=== PATIENT | male | born 1965 | race African-American/Black ===

== ENCOUNTER 2017-08-08 19:23 | Emergency (ER) | payer MEDICAID ==
[~2017-08-08] VITALS: Ht 177.8 cm; Wt 57.0 kg
[~2017-08-08 19:23] MED LIST: DARU400T2 PO; DILANTIN PO; EMTR1TAB11 PO; MULT-1146 PO; RITO100T PO
[2017-08-08 19:24] VITALS: BP 116/72
== END 2017-08-08 22:22 | disposition left against medical advice (07) ==
LOC: ER 19:29
DX: Z53.21 Procedure and treatment not carried out due to patient leaving prior to being seen by health care provider (principal)

== ENCOUNTER 2018-08-04 20:37 | Emergency (ER) | payer MEDICAID ==
[~2018-08-04] VITALS: Ht 175.3 cm; Wt 75.0 kg
[2018-08-04] MEDS ORDERED: SODIUM CHLORIDE 0.9% 1,000 ML IV ONE (20:55)
[2018-08-04] MEDS ORDERED: LORAZEPAM 2MG/ML CPJ IV ONE ×3 (21:00→21:30)
[2018-08-04] MEDS ORDERED: LEVETIRACETAM 1000MG/100ML 100 ML IV ONE (21:00)
[2018-08-04] MEDS ORDERED: LORAZEPAM 2MG/ML CPJ ONE (21:19)
[2018-08-04 21:22] LABS: HEMATOCRIT. 38.8 % (42.0-52.0); HEMOGLOBIN. 12.9 g/dL (14.0-18.0); MEAN CORPUSCULAR HEMOGLOBIN 28.5 pg (28.0-32.0); MEAN CORPUSCULAR VOLUME 85.9 fL (80.0-94.0); MEAN PLATELET VOLUME 7.2 fl (7.4-10.4); PLATELET 125 x1000/uL (130-400); RED BLOOD CELL COUNT 4.51 mill/uL (4.7-6.1); RED CELL DISTRIBUTION WIDTH 13.8 % (11.6-14.6)
[2018-08-04 21:28] LABS: CHLORIDE 105 mEq/L (98-107)
[2018-08-04 21:33] LABS: ETHANOL BLOOD < 10 mg/dL
[2018-08-04 21:47] LABS: METHADONE URINE SCREEN NEGATIVE (NEGATIVE); OPIATES URINE SCREEN NEGATIVE (NEGATIVE); PHENCYCLIDINE URINE SCREEN NEGATIVE (NEGATIVE)
[2018-08-04 21:47] LABS: CARBAMAZEPINE < 0.5 ug/mL (4-12); PHENOBARBITAL < 2.1 ug/mL (15.0-40.0); VALPROIC ACID < 3.0 ug/mL (50-100)
[2018-08-04 21:49] LABS: *AMPHETAMINES SCREEN URINE NEGATIVE (NEGATIVE); *BARBITURATES SCREEN URINE NEGATIVE (NEGATIVE); *BENZODIAZEPINES SCREEN URINE NEGATIVE (NEGATIVE); *COCAINE SCREEN URINE NEGATIVE (NEGATIVE); CANNABINOID URINE SCREEN NEGATIVE (NEGATIVE)
[2018-08-04 23:01] LABS: ATYPICAL LYMPHOCYTES 3; NUCLEATED RED BLOOD CELLS 1 /100 WBC; PLATELET ESTIMATE SLIGHTLY DECREASED
[2018-08-05 00:39] VITALS: BP 119/88
== END 2018-08-05 00:42 | disposition home or self-care (01) ==
LOC: ER 21:01
DX: G40.909 Epilepsy, unspecified, not intractable, without status epilepticus (principal); E86.0 Dehydration; F17.200 Nicotine dependence, unspecified, uncomplicated; Z79.899 Other long term (current) drug therapy
CPT/HCPCS: 36415; 70450; 80053; 80156; 80165; 80184; 80185; 80305; 80320; 84443; 84484; 85025; 93005; 96365; 96375; 96376; 99284; J1953; J2060; J7030; Z7610; G0480

== ENCOUNTER 2019-05-16 01:25 | Emergency (ER) | payer MEDICAID ==
[~2019-05-16] VITALS: Ht 177.8 cm; Wt 73.0 kg
[2019-05-16] MEDS ORDERED: LEVETIRACETAM 1000MG/100ML 100 ML IV ONE (01:45)
[2019-05-16 02:41] LABS: BASOPHILS % 0.6 % (0.0-2.0); EOSINOPHILS % 0.3 % (0.0-5.0); HEMATOCRIT. 40.4 % (42.0-52.0); HEMOGLOBIN. 13.4 g/dL (14.0-18.0); LYMPHOCYTES % 31.7 % (20.0-50.0); MEAN CORPUSCULAR HEMOGLOBIN 29.4 pg (28.0-32.0); MEAN CORPUSCULAR VOLUME 88.6 fL (80.0-94.0); MEAN PLATELET VOLUME 8.1 fl (7.4-10.4); MONOCYTES % 14.1 % (2.0-8.0); NEUTROPHILS % 53.3 % (40.0-76.0); PLATELET 135 x1000/uL (130-400); RED BLOOD CELL COUNT 4.56 mill/uL (4.7-6.1); RED CELL DISTRIBUTION WIDTH 13.4 % (11.6-14.6)
[2019-05-16 02:49] LABS: CHLORIDE 107 mEq/L (98-107)
[2019-05-16 02:55] LABS: ETHANOL BLOOD 174 mg/dL
[2019-05-16 03:34] LABS: CLARITY URINE CLEAR (CLEAR); COLOR URINE YELLOW (YELLOW); KETONES URINE NEGATIVE (NEGATIVE); LEUKOCYTE ESTERASE URINE TRACE (NEGATIVE); NITRITE URINE NEGATIVE (NEGATIVE); OCCULT BLOOD URINE NEGATIVE (NEGATIVE); PROTEIN URINE NEGATIVE (NEGATIVE); SPECIFIC GRAVITY URINE 1.003 (1.005-1.030); UROBILINOGEN URINE 0.2 E.U./dL (0.2-1.0)
[2019-05-16 03:45] LABS: *AMPHETAMINES SCREEN URINE NEGATIVE (NEGATIVE); *BARBITURATES SCREEN URINE NEGATIVE (NEGATIVE); *BENZODIAZEPINES SCREEN URINE NEGATIVE (NEGATIVE)
[2019-05-16 03:46] LABS: *COCAINE SCREEN URINE NEGATIVE (NEGATIVE); CANNABINOID URINE SCREEN NEGATIVE (NEGATIVE); METHADONE URINE SCREEN NEGATIVE (NEGATIVE); OPIATES URINE SCREEN NEGATIVE (NEGATIVE); PHENCYCLIDINE URINE SCREEN NEGATIVE (NEGATIVE)
[2019-05-16 05:25] VITALS: BP 117/83
[2019-05-17 09:09] LABS: ABSOLUTE LYMPHOCYTES 1.4 x10E3/uL (0.7-3.1); ABSOLUTE MONOCYTES 0.7 x10E3/uL (0.1-0.9); ABSOLUTE NEUTROPHILS 2.2 x10E3/uL (1.4-7.0); BASOPHILS 1 % (Not Estab.); HEMATOCRIT 39.8 % (37.5-51.0); HEMOGLOBIN 13.2 g/dL (13.0-17.7); IMMATURE GRANULOCYTES 0 % (Not Estab.); LYMPHOCYTES 32 % (Not Estab.); MEAN CORPUSCULAR HEMOGLOBIN 28.7 pg (26.6-33.0); MEAN CORPUSCULAR HGB CONC. 33.2 g/dL (31.5-35.7); MEAN CORPUSCULAR VOLUME 87 fL (79-97); MONOCYTES 17 % (Not Estab.); NEUTROPHILS 49 % (Not Estab.); PLATELETS 143 x10E3/uL (150-450); RED CELL DISTRIBUTION WIDTH 13.8 % (11.6-15.4); WBC 4.4 x10E3/uL (3.4-10.8)
[2019-05-17 12:21] LABS: % CD 3 POS. LYMPHOCYTES 33.8 % (57.5-86.2); % CD 4 POS. LYMPHOCYTES 2.7 % (30.8-58.5); % CD 8 POS. LYMPH 29.4 % (12.0-35.5); ABSOLUTE CD 3 473 /uL (622-2402); ABSOLUTE CD 4 HELPER 38 /uL (359-1519); ABSOLUTE CD 8 SUPPRESSOR 412 /uL (109-897); CD4/CD8 RATIO 0.09 (0.92-3.72)
[2019-05-22 17:11] LABS: *HIV-1 RNA BY PCR 131080 copies/mL (.)
== END 2019-05-16 05:34 | disposition home or self-care (01) ==
LOC: ER 01:25
DX: G40.909 Epilepsy, unspecified, not intractable, without status epilepticus (principal); F10.10 Alcohol abuse, uncomplicated; Z91.14 Patient's other noncompliance with medication regimen; Y90.6 Blood alcohol level of 120-199 mg/100 ml
CPT/HCPCS: 36415; 70450; 80053; 80305; 80320; 81003; 82962; 85025; 86359; 86360; 87536; 96365; 99284; J1953; G0480